=== PATIENT | male | born 1970 | race Caucasian/White ===

== ENCOUNTER 2020-11-16 10:50 | Emergency (ER) | payer SELFPAY ==
[2020-11-16 10:58] VITALS: BP 139/88; PULSE 120; TEMP 98.3; BMI 40.3
[2020-11-16] MEDS ORDERED: ACETAMINOPHEN 500 MG TABLET (FP) PO ONE (13:33)
[2020-11-16] MEDS ORDERED: CASIRIVIMAB (REGN10933) 1,200 MG, IMDEVIMAB (REGN10987) 1,200 MG in SODIUM CHLORIDE 230 ML IVPB ONE (14:55)
== END 2020-11-16 18:58 | disposition home or self-care (01) ==
LOC: JCOVINFU 10:50
DX: U07.1 COVID-19 (principal)
CPT/HCPCS: 99284-25; C9803; M0243; Q0243; U0003